=== PATIENT | female | born 1995 | race Caucasian/White ===

== ENCOUNTER → 2023-06-13 15:56 | Outpatient (CLI) | payer BC, SELFPAY ==
--- NOTE | ~2023-06-13 | US_ITS ---
US breast RT complete DATE: 06/13/2023 16:17 INDICATION: Palpable area around 7:00. Mother was diagnosed with breast cancer at age 37. TECHNIQUE: Real-time imaging of complete right breast COMPARISON: None FINDINGS: No suspicious mass or shadowing or cyst or other significant abnormality is detected. IMPRESSION: Negative Reviewed, dictated and finalized at [facility]. Reviewed, dictated and finalized at [facility]. IMPRESSION: Negative
== END ==
PROVIDERS: PCP Obstetrics & Gynecology; Visit Provider Obstetrics & Gynecology
DX: N63.10 Unspecified lump in the right breast, unspecified quadrant (principal)
CPT/HCPCS: 76641